=== PATIENT | male | born 2000 | race Caucasian/White ===

== ENCOUNTER 2023-12-01 00:28 | Emergency (ER) | payer SELFPAY ==
[~2023-12-01] VITALS: Ht 175.3 cm; Wt 90.9 kg
[2023-12-01 00:33] VITALS: TEMP 98.4
[2023-12-01] MEDS ORDERED: NS 1,000 ML IV ONE (00:45)
[2023-12-01 01:00] LABS: BASO % 0.3 % (0.0-2.0); EOS # 0.1 K/mm3 (0.0-0.7); EOS % 0.7 % (0.0-4.0); GRAN # 6.5 K/mm3 (1.4-6.5); HEMATOCRIT 45.8 % (42.0-52.0); HEMOGLOBIN 15.9 g/dl (13.5-18.0); LYMPH # 2.7 K/mm3 (1.2-3.4); LYMPH % 25.7 % (20.0-51.0); MEAN CELL VOLUME 85 fl (80.0-100.0); MEAN CORPUSCULAR HEMOGLOBIN 30 pg (27-31); MEAN CORPUSCULAR HGB CONC 35 g/dl (33.0-37.0); MEAN PLATELET VOLUME 11.2 fl (7.4-10.4); MONO # 1.1 K/mm3 (0.1-0.6); MONO % 10.8 % (1.7-9.3); PLATELET COUNT 176 K/mm3 (130-400); RED BLOOD COUNT 5.39 M/mm3 (4.20-5.60); REDCELL DISTRIBUTION WIDTH-CV 12.4 % (11.5-14.5)
[2023-12-01] MEDS ORDERED: Ketorolac 15 MG/ML VIAL IV ONE (01:00)
[2023-12-01] MEDS ORDERED: Ondansetron 4 MG/2 ML VIAL IV ONE (01:00)
[2023-12-01 01:07] LABS: PH 5.5 (5.0-8.5); URINE APPEARANCE CLEAR (CLEAR/HAZY); URINE BLOOD NEGATIVE (NEGATIVE); URINE COLOR YELLOW (YELLOW); URINE GLUCOSE NEGATIVE (NEGATIVE); URINE KETONE NEGATIVE (NEGATIVE); URINE NITRATE NEGATIVE (NEGATIVE); URINE PROTEIN(semi-quant) NEGATIVE (NEGATIVE); URINE UROBILINOGEN 0.2 E.U/dL (0.2-1.0)
[2023-12-01] MEDS ORDERED: Iohexol 300 - 100 ML VIAL IV ONE (01:16)
[2023-12-01] MEDS ORDERED: NS 50 ML IV ONE (01:19)
[2023-12-01 01:22] LABS: COLLECTION METHOD CLEAN CATCH
[2023-12-01 01:25] LABS: ALBUMIN 4.7 g/dL (3.5-5.0); BILIRUBIN,TOTAL 0.7 mg/dL (0.2-1.2); CALCIUM 9.9 mg/dL (8.4-10.2); CREATININE, serum 1.3 mg/dL (0.72-1.25); POTASSIUM 3.9 mEq/L (3.5-4.5); TOTAL PROTEIN 7.3 g/dl (6.2-8.1)
[2023-12-01 01:43] LABS: C-REACTIVE PROTEIN 0.19 mg/dL (0.00-0.50)
[2023-12-01] MEDS ORDERED: ZOFRAN ODT4 MG PO ×2 (02:56→12:43)
[2023-12-01] MEDS ORDERED: FLOMAX 0.40.4 MG/CAP PO ×2 (02:56→12:43)
[2023-12-01] MEDS ORDERED: NORCO 325 MG-51 TAB PO ×2 (02:56→12:43)
[2023-12-01] MEDS ORDERED: Home HYDROcodone/Acetaminophen 5/325 MG #4 TABS/PACK PO ONE (03:00)
[2023-12-01 03:08] VITALS: BP 148/88; PULSE 62
== END 2023-12-01 03:08 | disposition home or self-care (01) ==
LOC: COL.ER 00:28
PROVIDERS: Physician Assistant
DX: N13.2 Hydronephrosis with renal and ureteral calculous obstruction (principal); Z87.891 Personal history of nicotine dependence
CPT/HCPCS: J1885; J2405; J7030; Q9967